=== PATIENT | male | born 1975 | race Caucasian/White ===

== ENCOUNTER 2025-02-17 11:07 | Emergency (ER) | payer BC ==
[~2025-02-17] VITALS: Ht 170.2 cm; Wt 106.8 kg
[2025-02-17 11:09] VITALS: BP 187/98; PULSE 68; RESP 18; O2SAT 98
--- NOTE | 2025-02-17 11:30 | Physician Documentation ---
History of Present Illness ~ Chief Complaint: Laceration Stated Complaint: HEAD LAC Time Seen by MD: 11:16 Source: patient Mode of Arrival: POV Exam Limitations: no limitations HPI 49-year-old male was out doing yd work and weeding when he was under a tree branch and received laceration to the top of his head from the tree. Patient is up-to-date on tetanus Medication Reconciliation Allergies: Coded Allergies: No Known Allergies (Unverified , 02/17/25) Past Medical History Past Medical History: No Pertinent History Review of Systems All Other Systems at this time: Reviewed and Negative Integumentary: Reports: see HPI Physical Exam Vital Signs: RN Vital Signs have been reviewed: Yes, Heart Rate: 68, Respiratory Rate: 18, BP: 187/98, Pulse Oximetry: 98, Weight: 106.820 Physical Exam General: Alert, no apparent distress. HEENT: PERRL, EOMI, no injection, moist mucous membranes. Neck: Full range of motion. Respiratory: no respiratory distress. Chest: No accessory muscle use. Neurologic: Oriented x4. Psychiatric: Normal mood and affect. Skin: Normal color, warm and dry. No edema, no ecchymosis. Integumentary: 3-1/2 cm superficial laceration to the scalp Progress Results/Orders Results/Orders Orders - DANG HUGHES NP Wound Care Orders (02/17/25 11:17) Completed Orders - DANG HUGHES CABLE RESPOOLER Bacitracin Ointment (Bacitracin Ointment (02/17/25 11:35) Vital Signs 02/17/25 11:09 Pulse 68 Resp 18 B/P (MAP) 187/98 Pulse Ox 98 Medical Decision Making Findings Superficial abrasion from tree branch patient unable to thoroughly evaluate and came in due to apixaban taken in seeing the length. Wound cleaned out no areas of repair. Departure Time of Disposition: 11:38 Disposition: 01 HOME / SELF CARE / HOMELESS Impression: Primary Impression: Laceration Condition: Stable Additional Instructions: Keep area clean and dry may shower. Monitor for infection and follow up with primary care as needed Referrals: NO PRIMARY CARE PROVIDER (PCP) Education Educated: Patient Educated regarding: diagnosis, treatment, need for follow up Signature Scribe Signature: No scribe Attestation: The note accurately reflects work and decisions made by me.Dang Hughes - MAURICIO 02/17/25 11:33 DANG HUGHES NP Feb 17, 2025 11:30
[2025-02-17] MEDS: bacitracin 15gm ointment TP ONE (11:41)
== END 2025-02-17 11:48 | disposition home or self-care (01) ==
LOC: ER 11:08
DX: S01.01XA Laceration without foreign body of scalp, initial encounter (principal); W26.8XXA Contact with other sharp object(s), not elsewhere classified, initial encounter; Y93.89 Activity, other specified; Y92.89 Other specified places as the place of occurrence of the external cause; Y99.8 Other external cause status
CPT/HCPCS: 99282